=== PATIENT | male | born 1985 | race Caucasian/White ===

== ENCOUNTER 2017-10-19 09:57 | Outpatient (CLI) | payer MEDICARE ==
--- NOTE | 2017-10-22 10:59 | RAD ---
MODEFIED BARIUM SWALLOW: History: Dysphagia, unspecified. R13.10; feeding difficulties, R63.3 FINDINGS: Examination was performed by the speech pathologist. The radiologist was not present. The consistency of contrast was not labelled on the examination. There is penetration with all consis tency contrast. There was aspiration of one of the contrast consistencies. IMPRESSION: Poor oropharyngeal phase with penetration as well as aspiration. Please see speech pathologist report for further details. The contrast was not labelled on the exam. POS: FLORENCIA
== END 2017-10-19 09:58 | disposition home or self-care (01) ==
LOC: EDSTATUS 10:00
PROVIDERS: ATTEND Family Medicine
DX: R13.10 Dysphagia, unspecified (principal); R63.3 Feeding difficulties
CPT/HCPCS: 74230; G8996-GN-CK; G8997-GN-CK; G8998-GN-CK

== ENCOUNTER 2019-02-08 15:54 | Emergency (ER) | payer MEDICARE | END 2019-02-08 17:35 | LOC: ERS 15:54 | DX: G40.909 Epilepsy, unspecified, not intractable, without status epilepticus (principal); S01.512A Laceration without foreign body of oral cavity, initial encounter; X58.XXXA Exposure to other specified factors, initial encounter ==

== ENCOUNTER 2020-03-03 09:18 | Emergency (ER) | payer MEDICARE ==
[2020-03-03] MEDS ORDERED: Ketorolac Tromethamine 30 MG/ML VIAL ONE (09:39)
[2020-03-03] MEDS ORDERED: Morphine 4 MG/ML VIAL ONE (09:39)
[2020-03-03 10:10] LABS: #Lymphocytes 1.1 thou/uL (1.20-3.40); #Monocytes 1.5 thou/uL (0.11-0.59); #Neutrophils 13.8 thou/uL (1.40-6.50); %Lymphocytes 6.8 % (21.0-51.0); %Monocytes 8.9 % (0.0-10.0); %Neutrophils 84.3 % (42.0-75.0); Mean Corpuscular HGB CONC 33.1 g/dL (32.0-36.0); Mean Corpuscular Hemoglobin 30.9 pg (27.0-31.0); Mean Corpuscular Volume 93.2 fL (78.0-98.0); Mean Platelet Volume 7.8 fL (7.4-10.4); Platelet Count 328 thou/uL (130-400); RBC Distribution Width 12.3 % (11.5-14.5); Red Blood Cell (RBC) Count 4.87 mill/uL (4.70-6.10); White Blood Cell (WBC) Count 16.3 thou/uL (4.8-10.8)
[2020-03-03 10:19] LABS: Bilirubin Negative (Negative); Blood, Urine Negative (Negative); Clarity Clear (Clear); Glucose, Urine (Dipstick) Normal (Negative); Ketone, Urine 20 mg/dL (Negative); Leukocyte Negative Leu/uL (Negative); Nitrite Negative (Negative); Protein, Urine (Dipstick) 20 mg/dL (Neg-Trace); Urobilinogen Normal mg/dL (Less than 2); pH, Urine 5.5 (5.0-9.0)
[2020-03-03 10:30] LABS: ALT (SGPT) 34 U/L (8-55); AST (SGOT) 17 U/L (5-34); Albumin 3.7 g/dL (3.5-5.0); Alkaline Phosphatase 84 U/L (40-110); Anion Gap 21 mmol/L (10-20); BUN (Urea Nitrogen) 11 mg/dL (8.9-20.6); Bilirubin, Total 0.6 mg/dL (0.2-1.2); Calc. Creatinine Clearance 0 mL/min (70-130); Calcium 8.1 mg/dL (7.8-10.44); Carbon Dioxide 21 mmol/L (22-29); Chloride 104 mmol/L (98-107); Globulin 2.8 g/dL (2.4-3.5); Glucose 108 mg/dL (70-105); Lipase 10 U/L (8-78); Protein, Total 6.5 g/dL (6.0-8.3); Sodium 142 mmol/L (136-145)
--- NOTE | 2020-03-03 10:36 | CT ---
CT of abdomen and pelvis: 03/03/2020 COMPARISON: None HISTORY: Seizure activity, right-sided pain TECHNIQUE: Axial CT imaging at 5 mm intervals from lung bases through pubic symphysis with IV contras t. Coronal and sagittal reformatted imaging obtained. FINDINGS: Nonspecific mild increased linear density noted in the lung bases, right greater than left. There is elevation of the right hemidiaphragm. The hepatic parenchyma is diffusely hypodense, suggesting hepatic steatosis. The spleen, pancreas, adrenal glands, and kidneys demonstrate no acute findings. A tiny 4-5 mm hypodensity within the midpole of the left kidney is noted posteriorly, too small to characterize. The rectum contains stool and is decompressed, not optimally assessed on this exam. No focal area of bowel inflammatory change is noted. There is no evidence for bowel obstruction. Detailed assessment of the right lower quadrant is slightly limited secondary to motion artifact. No evidence for appendi citis is seen. Vascular structures of the abdomen/pelvis appear patent. No enlarged pelvic, mesenteric, or retroperi toneal lymph nodes are seen. There is a baclofen pump present, reservoir within the subcutaneous soft tissues of the right lower q uadrant. There is significant surrounding soft tissue gas and a mild degree of subcutaneous fat stranding and fluid adjacent to the pump reservoir. The associated catheter tubing enters the spinal canal at the L3-4 level and extends into the thoracic region, incompletely imaged on this exam. There is scoliosis of the thoracolumbar spine, not optimally assessed on this exam. No acute osseous abnormality is seen. There is multilevel lumbar spine degenerative change. IMPRESSION: Soft tissue gas with fat stranding and small volume fluid adjacent to the baclofen pump r eservoir within the subcutaneous soft tissues of the right lower quadrant. Results were discussed with Dr. Moon at 10:30 AM 03/03/2020. Dr. Moon reports that this reservoir was recently surgical ly changed, likely accounting for the findings within the soft tissues. Early change of infection cannot be excluded in the proper clinical setting.
[2020-03-03] MEDS ORDERED: Cefepime 2 GM VIAL ONE (10:52)
[2020-03-03] MEDS ORDERED: Sodium Chloride 0.9% 100 ML ONE (10:52)
--- NOTE | 2020-03-03 10:54 | RAD ---
PORTABLE CHEST: HISTORY: Seizure. COMPARISON: 07/28/2016. FINDINGS/IMPRESSION: Poor inspiration limits the exam. Lungs appear clear as visualized with no evidence of acute interva l change. POS: AGW
[2020-03-03] MEDS ORDERED: Baclofen 10 MG TAB PO SCH (13:00)
[2020-03-03 13:25] LABS: Lactic Acid 1.4 mmol/L (0.5-2.2)
[2020-03-03] MEDS ORDERED: Iopamidol-370 76% 500 ML 1 ML ONE (14:19)
--- NOTE | 2020-03-06 15:19 | EKG ---
Test Reason : Blood Pressure : / mmHG Vent. Rate : 154 BPM Atrial Rate : 154 BPM P-R Int : 122 ms QRS Dur : 076 ms QT Int : 258 ms P-R-T Axes : 063 053 046 degrees QTc Int : 413 ms Sinus tachycardia Otherwise normal ECG Confirmed by CHRISTIAN HAILE ([id number]), book or script editor MADELINE FORTUNE ([id number]) on 03/06/2020 3:19:11 PM Referred By: Confirmed By:CHRISTIAN Dorsey
== END 2020-03-03 14:20 | disposition short-term general hospital (02) ==
LOC: ERS 09:18
DX: T85.615A Breakdown (mechanical) of other nervous system device, implant or graft, initial encounter (principal); M62.838 Other muscle spasm; G40.909 Epilepsy, unspecified, not intractable, without status epilepticus; Z79.899 Other long term (current) drug therapy
CPT/HCPCS: 36415; 51701; 71045; 74177; 80053; 81003; 83605; 83690; 84484; 85025; 87040; 87086; 93005; 96365; 96366; 96367; 96375; J0692; J1885; J2270; J3370; J3490; J7030; Q9967

== ENCOUNTER 2020-03-12 06:21 | Emergency (ER) | payer MEDICARE ==
[2020-03-12] MEDS ORDERED: levETIRAcetam 500 MG/100 ML PREMIX BAG ONE (08:23)
== END 2020-03-12 13:15 ==
LOC: ERS 06:21
DX: G40.409 Other generalized epilepsy and epileptic syndromes, not intractable, without status epilepticus (principal); G81.91 Hemiplegia, unspecified affecting right dominant side; Z79.899 Other long term (current) drug therapy
CPT/HCPCS: 36415; 80164; 80177; 96365; J1953

== ENCOUNTER 2020-08-08 12:58 | Emergency (ER) | payer MEDICARE, MEDICAID ==
[2020-08-08 13:36] LABS: #Basophils 0.1 thou/uL (0.0-0.2); #Eosinphils 0.1 thou/uL (0.0-0.7); #Lymphocytes 2.2 thou/uL (1.20-3.40); #Monocytes 0.8 thou/uL (0.11-0.59); #Neutrophils 9.9 thou/uL (1.40-6.50); %Basophils 0.4 % (0.0-1.0); %Eosinophils 0.5 % (0.0-10.0); %Lymphocytes 16.6 % (21.0-51.0); %Monocytes 6.1 % (0.0-10.0); %Neutrophils 76.3 % (42.0-75.0); Hemoglobin 15.5 g/dL (14.0-18.0); Mean Corpuscular HGB CONC 33.1 g/dL (32.0-36.0); Mean Corpuscular Hemoglobin 30.7 pg (27.0-31.0); Mean Corpuscular Volume 92.6 fL (78.0-98.0); Mean Platelet Volume 7.5 fL (7.4-10.4); Platelet Count 396 thou/uL (130-400); RBC Distribution Width 11.8 % (11.5-14.5); Red Blood Cell (RBC) Count 5.07 mill/uL (4.70-6.10)
[2020-08-08] MEDS ORDERED: levETIRAcetam 500 MG/100 ML PREMIX BAG ONE (13:45)
[2020-08-08] MEDS ORDERED: Boostrix 0.5 ML (Tdap) VIAL ONE (13:45)
[2020-08-08 13:56] LABS: Anion Gap 12 mmol/L (10-20); BUN (Urea Nitrogen) 9 mg/dL (8.9-20.6); Calc. Creatinine Clearance 0 mL/min (70-130); Calcium 9.8 mg/dL (7.8-10.44); Carbon Dioxide 29 mmol/L (22-29); Chloride 101 mmol/L (98-107); Glucose 85 mg/dL (70-105); Potassium 3.9 mmol/L (3.5-5.1); Sodium 138 mmol/L (136-145)
== END 2020-08-08 18:10 | disposition home or self-care (01) ==
LOC: ERS 12:58
DX: G40.909 Epilepsy, unspecified, not intractable, without status epilepticus (principal); S01.01XA Laceration without foreign body of scalp, initial encounter; X58.XXXA Exposure to other specified factors, initial encounter; Z79.899 Other long term (current) drug therapy
CPT/HCPCS: 12001; 70450; 80048; 84146; 85025; 90471; 90715; 93005; 96365; J1953

== ENCOUNTER 2021-05-07 22:09 | Inpatient (IN) | payer OTHER, MEDICARE, MEDICAID ==
[2021-05-07] MEDS ORDERED: Cefepime 2 GM VIAL ONE (22:53)
[2021-05-07 23:02] LABS: #Lymphocytes 1.7 thou/uL (1.20-3.40); #Monocytes 0.9 thou/uL (0.11-0.59); #Neutrophils 11.4 thou/uL (1.40-6.50); %Basophils 0.3 % (0.0-1.0); %Eosinophils 0.3 % (0.0-10.0); %Lymphocytes 12.2 % (21.0-51.0); %Monocytes 6.3 % (0.0-10.0); %Neutrophils 80.9 % (42.0-75.0); Mean Corpuscular Hemoglobin 31.2 pg (27.0-31.0); Mean Corpuscular Volume 91.6 fL (78.0-98.0); Mean Platelet Volume 7.3 fL (7.4-10.4); Platelet Count 358 thou/uL (130-400); RBC Distribution Width 12.3 % (11.5-14.5); Red Blood Cell (RBC) Count 4.81 mill/uL (4.70-6.10); White Blood Cell (WBC) Count 14.1 thou/uL (4.8-10.8)
[2021-05-07 23:13] LABS: PTT 25.6 sec (22.9-36.1); Prothrombin Time 12.8 sec (12.0-14.7)
[2021-05-07 23:25] LABS: ALT (SGPT) 53 U/L (8-55); AST (SGOT) 38 U/L (5-34); Albumin 3.8 g/dL (3.5-5.0); Alkaline Phosphatase 82 U/L (40-110); Anion Gap 15 mmol/L (10-20); BUN (Urea Nitrogen) 7 mg/dL (8.9-20.6); Bilirubin, Total 0.4 mg/dL (0.2-1.2); Calc. Creatinine Clearance 0 mL/min (70-130); Calcium 8.6 mg/dL (7.8-10.44); Carbon Dioxide 20 mmol/L (22-29); Chloride 107 mmol/L (98-107); Globulin 2.9 g/dL (2.4-3.5); Glucose 138 mg/dL (70-105); Potassium 3.6 mmol/L (3.5-5.1); Protein, Total 6.7 g/dL (6.0-8.3); Sodium 138 mmol/L (136-145)
[2021-05-07 23:40] LABS: Bacteria/HPF None Seen HPF (None Seen); Bilirubin Negative (Negative); Blood, Urine Trace (Negative); Clarity Clear (Clear); Glucose, Urine (Dipstick) Normal (Negative); Ketone, Urine 10 mg/dL (Negative); Leukocyte Negative Leu/uL (Negative); Nitrite Negative (Negative); Protein, Urine (Dipstick) 30 mg/dL (Neg-Trace); RBC/HPF 0-3 HPF (0-3); Specific Gravity, Urine 1.024 (1.002-1.036); Squamous Epithelial 0-3 HPF (0-3); Urobilinogen Normal mg/dL (Less than 2); WBC/HPF 0-3 HPF (0-3); pH, Urine 5.5 (5.0-9.0)
[2021-05-08] MEDS ORDERED: Vancomycin 1 GM/200 ML BAG ONE (00:43)
[2021-05-08] MEDS ORDERED: Ondansetron PF 4 MG/2 ML Vial IVP PRN (01:00)
[2021-05-08] MEDS ORDERED: Ondansetron ODT 4 MG TAB SL PRN (01:00)
[2021-05-08] MEDS: Sodium Chloride 0.9% 1,000 ML IV SCH ×2 (01:38→12:38)
[2021-05-08 01:57] LABS: Lactic Acid 2.1 mmol/L (0.5-2.2)
[2021-05-08] MEDS ORDERED: Cefepime 2 GM in Sodium Chloride 0.9% 100 ML IVPB SCH (08:00)
[2021-05-08] MEDS ORDERED: Cefepime 2 GM VIAL ONE (09:17)
[2021-05-08 10:50] VITALS: BMI 19.1
[2021-05-08] MEDS ORDERED: Valproate Sodium 500 MG in Sodium Chloride 0.9% 100 ML IVPB SCH (11:30)
[2021-05-08] MEDS ORDERED: levETIRAcetam in NS 500 MG in Premix Bag 1 BAG IVPB SCH ×2 (11:30→21:00)
[2021-05-08 12:23] LABS: #Eosinphils 0.1 thou/uL (0.0-0.7); #Lymphocytes 2.1 thou/uL (1.20-3.40); #Monocytes 0.6 thou/uL (0.11-0.59); #Neutrophils 8.4 thou/uL (1.40-6.50); %Basophils 0.4 % (0.0-1.0); %Eosinophils 0.6 % (0.0-10.0); %Lymphocytes 18.4 % (21.0-51.0); %Monocytes 5.6 % (0.0-10.0); %Neutrophils 75.1 % (42.0-75.0); Mean Corpuscular HGB CONC 32.8 g/dL (32.0-36.0); Mean Corpuscular Hemoglobin 30.8 pg (27.0-31.0); Mean Corpuscular Volume 93.9 fL (78.0-98.0); Mean Platelet Volume 7.3 fL (7.4-10.4); Platelet Count 332 thou/uL (130-400); RBC Distribution Width 12.4 % (11.5-14.5); Red Blood Cell (RBC) Count 4.54 mill/uL (4.70-6.10); White Blood Cell (WBC) Count 11.1 thou/uL (4.8-10.8)
[2021-05-08] MEDS: levETIRAcetam 500 MG TAB PER TUBE SCH ×2 (12:39→20:53)
[2021-05-08] MEDS: Carbidopa/Levodopa 25-100 mg Tablet PER TUBE SCH ×2 (12:42→15:04)
[2021-05-08 15:29] LABS: SARS-CoV-2 PCR by NAA Not Detected (NotDetected)
[2021-05-08] MEDS: Valproate Sodium 500 MG in Sodium Chloride 0.9% 100 ML IVPB SCH (20:54)
[2021-05-08] MEDS: Valproate Sodium 250 mg/5 ml UD Cup PER TUBE SCH (20:55)
[2021-05-09] MEDS ORDERED: Ondansetron PF 4 MG/2 ML Vial IVP PRN (01:29)
[2021-05-09] MEDS: levETIRAcetam 500 MG TAB PER TUBE SCH ×2 (08:43→22:04)
[2021-05-09] MEDS: Valproate Sodium 250 mg/5 ml UD Cup PER TUBE SCH ×2 (08:43→22:04)
[2021-05-09] MEDS: Carbidopa/Levodopa 25-100 mg Tablet PER TUBE SCH (08:43)
[2021-05-09] MEDS: Cholecalciferol 1,000 UNITS (25 MCG) TAB PER TUBE SCH (08:43)
[2021-05-09] MEDS: Valproate Sodium 500 MG in Sodium Chloride 0.9% 100 ML IVPB SCH ×2 (09:15→22:04)
[2021-05-09 09:45] LABS: #Eosinphils 0.1 thou/uL (0.0-0.7); #Lymphocytes 2.4 thou/uL (1.20-3.40); #Monocytes 0.5 thou/uL (0.11-0.59); #Neutrophils 8.3 thou/uL (1.40-6.50); %Basophils 0.3 % (0.0-1.0); %Eosinophils 1.2 % (0.0-10.0); %Lymphocytes 20.8 % (21.0-51.0); %Monocytes 4.8 % (0.0-10.0); %Neutrophils 72.9 % (42.0-75.0); Hemoglobin 14.9 g/dL (14.0-18.0); Mean Corpuscular HGB CONC 34.5 g/dL (32.0-36.0); Mean Corpuscular Hemoglobin 32.2 pg (27.0-31.0); Mean Corpuscular Volume 93.5 fL (78.0-98.0); Mean Platelet Volume 7.3 fL (7.4-10.4); Platelet Count 327 thou/uL (130-400); RBC Distribution Width 12.2 % (11.5-14.5); Red Blood Cell (RBC) Count 4.64 mill/uL (4.70-6.10); White Blood Cell (WBC) Count 11.3 thou/uL (4.8-10.8)
[2021-05-09] MEDS: Vancomycin 1 GM in Premix Bag 1 BAG IVPB SCH ×2 (10:26→18:35)
[2021-05-09] MEDS ORDERED: Piperacillin/Tazobactam 3.375 GM in Sodium Chloride 0.9% 100 ML IVPB SCH ×2 (12:45→14:00)
[2021-05-09 14:39] LABS: Carbamazepine-Tegretol Less than 1.9 ug/mL (4.0-12.0)
[2021-05-09] MEDS ORDERED: Pregabalin 75 MG CAP PO SCH (18:00)
[2021-05-09 21:24] LABS: Albumin 3.7 g/dL (3.5-5.0)
[2021-05-09 21:26] LABS: Calcium 8.6 mg/dL (7.8-10.44); Chloride 103 mmol/L (98-107); Potassium 4.6 mmol/L (3.5-5.1); Sodium 136 mmol/L (136-145)
[2021-05-09 21:27] LABS: Globulin 3.2 g/dL (2.4-3.5); Glucose 75 mg/dL (70-105); Protein, Total 6.9 g/dL (6.0-8.3)
[2021-05-09 21:28] LABS: Anion Gap 18 mmol/L (10-20); Carbon Dioxide 20 mmol/L (22-29)
[2021-05-09 21:30] LABS: Alkaline Phosphatase 79 U/L (40-110); Calc. Creatinine Clearance 164 mL/min (70-130)
[2021-05-09 21:31] LABS: BUN (Urea Nitrogen) 6 mg/dL (8.9-20.6)
[2021-05-09 21:32] LABS: AST (SGOT) 21 U/L (5-34)
[2021-05-09 21:33] LABS: ALT (SGPT) 16 U/L (8-55)
[2021-05-09] MEDS: Piperacillin/Tazobactam 3.375 GM in Sodium Chloride 0.9% 100 ML IVPB SCH (22:04)
[2021-05-10] MEDS: Vancomycin 1 GM in Premix Bag 1 BAG IVPB SCH ×3 (03:08→18:07)
[2021-05-10 05:32] LABS: #Basophils 0.1 thou/uL (0.0-0.2); #Eosinphils 0.1 thou/uL (0.0-0.7); #Lymphocytes 2.6 thou/uL (1.20-3.40); #Monocytes 0.7 thou/uL (0.11-0.59); #Neutrophils 8.4 thou/uL (1.40-6.50); %Basophils 0.5 % (0.0-1.0); %Eosinophils 0.9 % (0.0-10.0); %Monocytes 6.2 % (0.0-10.0); %Neutrophils 70.4 % (42.0-75.0); Hemoglobin 14.7 g/dL (14.0-18.0); Mean Corpuscular HGB CONC 33.8 g/dL (32.0-36.0); Mean Corpuscular Volume 91.8 fL (78.0-98.0); Mean Platelet Volume 7.2 fL (7.4-10.4); Platelet Count 351 thou/uL (130-400); RBC Distribution Width 12.2 % (11.5-14.5); Red Blood Cell (RBC) Count 4.73 mill/uL (4.70-6.10); White Blood Cell (WBC) Count 11.9 thou/uL (4.8-10.8)
[2021-05-10 06:00] LABS: Anion Gap 15 mmol/L (10-20); BUN (Urea Nitrogen) 7 mg/dL (8.9-20.6); CK (CPK) 333 U/L (30-200); Calc. Creatinine Clearance 133 mL/min (70-130); Calcium 8.9 mg/dL (7.8-10.44); Carbon Dioxide 24 mmol/L (22-29); Chloride 103 mmol/L (98-107); Glucose 95 mg/dL (70-105); Potassium 3.5 mmol/L (3.5-5.1); Sodium 138 mmol/L (136-145)
[2021-05-10] MEDS: Piperacillin/Tazobactam 3.375 GM in Sodium Chloride 0.9% 100 ML IVPB SCH ×3 (06:10→21:00)
[2021-05-10] MEDS: Carbidopa/Levodopa 25-100 mg Tablet PER TUBE SCH (08:48)
[2021-05-10] MEDS: Valproate Sodium 500 MG in Sodium Chloride 0.9% 100 ML IVPB SCH ×3 (08:48→21:00)
[2021-05-10] MEDS: Cholecalciferol 1,000 UNITS (25 MCG) TAB PER TUBE SCH (08:48)
[2021-05-10] MEDS: Valproate Sodium 250 mg/5 ml UD Cup PER TUBE SCH ×2 (09:26→20:59)
[2021-05-10 09:58] LABS: Vancomycin, Trough 16.6 ug/mL
[2021-05-10] MEDS ORDERED: levETIRAcetam 500 mg/5 ml Oral Solution PER TUBE SCH ×2 (11:15→21:00)
[2021-05-10] MEDS: levETIRAcetam 500 MG TAB PER TUBE SCH (15:14)
[2021-05-11] MEDS: Vancomycin 1 GM in Premix Bag 1 BAG IVPB SCH (03:42)
[2021-05-11] MEDS: Piperacillin/Tazobactam 3.375 GM in Sodium Chloride 0.9% 100 ML IVPB SCH (06:37)
[2021-05-11] MEDS ORDERED: levETIRAcetam 500 mg/5 ml Oral Solution PER TUBE SCH (09:00)
[2021-05-11] MEDS: Cholecalciferol 1,000 UNITS (25 MCG) TAB PER TUBE SCH (09:04)
[2021-05-11] MEDS: Carbidopa/Levodopa 25-100 mg Tablet PER TUBE SCH (09:04)
[2021-05-11] MEDS: Valproate Sodium 250 mg/5 ml UD Cup PER TUBE SCH (09:06)
[2021-05-11] MEDS: Valproate Sodium 500 MG in Sodium Chloride 0.9% 100 ML IVPB SCH (09:08)
[2021-05-11 12:01] LABS: #Eosinphils 0.1 thou/uL (0.0-0.7); #Lymphocytes 1.7 thou/uL (1.20-3.40); #Monocytes 1.1 thou/uL (0.11-0.59); #Neutrophils 8.9 thou/uL (1.40-6.50); %Basophils 0.2 % (0.0-1.0); %Eosinophils 0.5 % (0.0-10.0); %Lymphocytes 14.1 % (21.0-51.0); %Monocytes 9.4 % (0.0-10.0); %Neutrophils 75.7 % (42.0-75.0); Hemoglobin 15.4 g/dL (14.0-18.0); Mean Corpuscular HGB CONC 32.9 g/dL (32.0-36.0); Mean Corpuscular Hemoglobin 30.8 pg (27.0-31.0); Mean Corpuscular Volume 93.5 fL (78.0-98.0); Mean Platelet Volume 7.1 fL (7.4-10.4); Platelet Count 369 thou/uL (130-400); RBC Distribution Width 12.5 % (11.5-14.5); Red Blood Cell (RBC) Count 5.02 mill/uL (4.70-6.10); White Blood Cell (WBC) Count 11.7 thou/uL (4.8-10.8)
[2021-05-11 16:04] VITALS: BP 109/67; TEMP 99.6
[2021-05-11] MEDS ORDERED: Divalproex Sodium 250 MG (DR) TAB PER TUBE SCH (21:00)
== END 2021-05-11 18:44 | DRG 100 ==
LOC: ERS 22:09 → ERHOLD 05-08 00:41 → NEURO 05-08 09:57 → OBSVTOIN 05-09 12:30
PROVIDERS: ADMIT Internal Medicine; ATTEND Internal Medicine
DX: G40.901 Epilepsy, unspecified, not intractable, with status epilepticus (principal); G82.50 Quadriplegia, unspecified; A41.9 Sepsis, unspecified organism; E87.2 Acidosis; L03.90 Cellulitis, unspecified; Z20.822 Contact with and (suspected) exposure to COVID-19; Z79.899 Other long term (current) drug therapy; Z93.1 Gastrostomy status; S06.9X0S Unspecified intracranial injury without loss of consciousness, sequela; V49.9XXS Car occupant (driver) (passenger) injured in unspecified traffic accident, sequela
CPT/HCPCS: 36415; 51701; 70450; 71045; 74230; 80048; 80053; 80156; 80164; 80177; 80202; 81003; 81015; 82550; 83605; 85025; 85610; 85730; 87040; 87086; 87149; 93005; 95712; 95819; 95957; 96365; 96366; 96367; 96375; 96376; G0378; J0692; J1953; J2543; J3370; J3490; J7050; U0003; U0005

== ENCOUNTER 2024-01-10 17:41 | Inpatient (IN) | payer MEDICARE, MEDICAID ==
[~2024-01-10 17:41] MED LIST: Iopamidol 370 76% 100 ML VIAL ONE
[2024-01-10] MEDS ORDERED: Dexamethasone 10 MG/ML VIAL ONE (18:21)
[2024-01-10] MEDS ORDERED: Magnesium 2 GM/50 ML BAG (IN WATER) ONE (18:21)
[2024-01-10] MEDS ORDERED: LevoFLOXacin 750 mg/D5W 150 ml Premix Bag ONE (18:22)
[2024-01-10] MEDS ORDERED: Cefepime 2 GM VIAL ONE (18:22)
[2024-01-10 18:25] LABS: #Basophils 0.06 10x3/uL (0.0-0.2); #Eosinophils Less than 0.03 10x3/uL (0.0-0.7); %Basophils 0.5 % (0.0-1.0); %Eosinophils 0.1 % (0.0-10.0); %Lymphocytes 10.4 % (21.0-51.0); %Monocytes 4.5 % (0.0-10.0); %Neutrophils 83.5 % (42.0-75.0); Hematocrit 45.2 % (42.0-52.0); Mean Corpuscular Hemoglobin 30.4 pg (27.0-31.0); Mean Platelet Volume 9.4 fL (7.4-10.4); Platelet Count 437 10x3/uL (130-400); RBC Distribution Width 13.8 % (11.5-14.5); Red Blood Cell (RBC) Count 4.61 mill/uL (4.70-6.10)
[2024-01-10] MEDS ORDERED: Sodium Chloride 0.9% 100 ML ONE (18:26)
[2024-01-10 18:36] LABS: ALT (SGPT) 43 U/L (8-55); AST (SGOT) 37 U/L (5-34); Albumin 2.4 g/dL (3.5-5.0); Alkaline Phosphatase 148 U/L (40-110); Anion Gap 16 mmol/L (10-20); BUN (Urea Nitrogen) 14 mg/dL (8.9-20.6); Bilirubin, Total 0.6 mg/dL (0.2-1.2); Calc. Creatinine Clearance 0 mL/min (70-130); Calcium 9.3 mg/dL (7.8-10.44); Carbon Dioxide 29 mmol/L (22-29); Chloride 102 mmol/L (98-107); Estimated GFR 114; Globulin 4.9 g/dL (2.4-3.5); Glucose 266 mg/dL (70-105); Lipase 69 U/L (8-78); Potassium 4.5 mmol/L (3.5-5.1); Protein, Total 7.3 g/dL (6.0-8.3); Sodium 142 mmol/L (136-145)
[2024-01-10 18:41] LABS: Troponin I Less than 0.010 ng/mL (< 0.028)
[2024-01-10 18:45] LABS: Actual Bicarbonate (HCO3a) 28.9 mEq/L (22-28); Analyzer IN Cardio ER; CO2 Tension 36.4 mmHg (35.0-45.0); Calcium, Ionized (arterial) 1.09 mmol/L (1.12-1.30); Carboxyhemoglobin (COHb) 0.8 gm% (0.0-3.0); Hematocrit-ABG 42 % (42.0-52.0); Hemoglobin (Hb) 14.4 g/dL (14.0-18.0); O2 Tension (PaO2), arterial 88.3 mmHg (80.0-100.0); Potassium - ABG Lab 4.16 mmol/L (3.70-5.30); pH, Arterial 7.518 (7.35-7.45)
[2024-01-10 18:54] LABS: Puncture Site Left Radial artery
[2024-01-10] MEDS ORDERED: Acetaminophen 650 MG Suppository PR PRN ×2 (19:38→19:49)
[2024-01-10] MEDS ORDERED: Benzonatate 100 MG CAP PO PRN (19:38)
[2024-01-10] MEDS ORDERED: Albuterol 200 PUFF (6.7GM INHALER) INH PRN (19:38)
[2024-01-10] MEDS ORDERED: Acetaminophen 325 MG TAB PO PRN ×2 (19:38→19:49)
[2024-01-10] MEDS ORDERED: traMADol HCl 50 MG TAB PO PRN ×2 (19:49)
[2024-01-10 21:21] LABS: Bacteria/HPF None Seen HPF (None Seen); Bilirubin Negative (Negative); Blood, Urine Trace (Negative); CAUTI Indications for Culture Fever or rigors; Clarity Clear (Clear); Glucose, Urine (Dipstick) 200 mg/dL (Negative); Ketone, Urine 10 mg/dL (Negative); Leukocyte Negative Leu/uL (Negative); Nitrite Negative (Negative); Protein, Urine (Dipstick) 50 mg/dL (Neg-Trace); Squamous Epithelial None Seen HPF (0-3); Urobilinogen 6 mg/dL (Less than 2); WBC/HPF 0-3 HPF (0-3); pH, Urine 6.5 (5.0-9.0)
[2024-01-10 21:32] LABS: Urine Culture Reflex No No
[2024-01-10 22:38] LABS: Lactic Acid 2.47 mmol/L (0.5-2.2)
[2024-01-10 23:05] VITALS: BMI 31.5
[2024-01-10] MEDS: levETIRAcetam 500 mg/5 ml Oral Solution PO SCH (23:07)
[2024-01-10] MEDS: Famotidine/PF 20 mg/2ml Vial SLOW IVP SCH (23:07)
[2024-01-10] MEDS: Carbidopa/Levodopa 25-100 mg Tablet PO SCH (23:08)
[2024-01-10] MEDS: Vancomycin (BATCH) 2.5 GM in Premix 1 BAG IVPB SCH (23:08)
[2024-01-10] MEDS: Lactated Ringer's 1,000 ML IV SCH (23:09)
[2024-01-10] MEDS: REMDESIVIR 200 MG in Sodium Chloride 0.9% 250 ML 210 ML IV SCH (23:14)
[2024-01-10] MEDS: Baclofen 10 MG TAB PO SCH (23:29)
[2024-01-11] MEDS: Cefepime 2 GM in Sodium Chloride 0.9% 100 ML IVPB SCH (00:01)
[2024-01-11] MEDS: Lactated Ringer's 500 ML IV SCH (00:02)
[2024-01-11 04:58] LABS: #Basophils 0.03 10x3/uL (0.0-0.2); #Eosinophils Less than 0.03 10x3/uL (0.0-0.7); %Basophils 0.3 % (0.0-1.0); %Lymphocytes 11.4 % (21.0-51.0); %Neutrophils 83.9 % (42.0-75.0); Hematocrit 39.5 % (42.0-52.0); Hemoglobin 12.3 g/dL (14.0-18.0); Mean Corpuscular HGB CONC 31.1 g/dL (32.0-36.0); Mean Corpuscular Hemoglobin 30.5 pg (27.0-31.0); Mean Platelet Volume 9.5 fL (7.4-10.4); Platelet Count 354 10x3/uL (130-400); RBC Distribution Width 13.2 % (11.5-14.5); Red Blood Cell (RBC) Count 4.03 mill/uL (4.70-6.10)
[2024-01-11 05:07] LABS: CRP,High Sensitivity (Inhouse) 7.67 mg/dL (< or = 0.5)
[2024-01-11 05:08] LABS: ALT (SGPT) 36 U/L (8-55); AST (SGOT) 24 U/L (5-34); Albumin 2.1 g/dL (3.5-5.0); Alkaline Phosphatase 119 U/L (40-110); Anion Gap 10 mmol/L (10-20); BUN (Urea Nitrogen) 13 mg/dL (8.9-20.6); Bilirubin, Direct 0.3 mg/dL (0.1-0.3); Bilirubin, Total 0.5 mg/dL (0.2-1.2); Calc. Creatinine Clearance 243 mL/min (70-130); Calcium 8.5 mg/dL (7.8-10.44); Carbon Dioxide 29 mmol/L (22-29); Chloride 105 mmol/L (98-107); Estimated GFR 124; Glucose 252 mg/dL (70-105); Lactic Acid 1.85 mmol/L (0.5-2.2); Potassium 4.2 mmol/L (3.5-5.1); Protein, Total 6.4 g/dL (6.0-8.3); Sodium 140 mmol/L (136-145)
[2024-01-11 05:10] LABS: Vancomycin, Random 19.5 ug/mL (See Comment)
[2024-01-11] MEDS ORDERED: Albuterol 2.5 MG (3 mL) NEB NEB PRN (06:56)
[2024-01-11] MEDS: Vancomycin 1 GM in Sodium Chloride 0.9% 250 ML 250 ML IVPB SCH (07:30)
[2024-01-11] MEDS: Valproic Acid 250 MG CAP PO SCH (07:30)
[2024-01-11] MEDS ORDERED: Vancomycin (BATCH) 1.25 GM in Premix 1 BAG IVPB SCH (08:00)
[2024-01-11] MEDS ORDERED: levETIRAcetam 500 mg/5 ml Oral Solution PO SCH ×2 (09:00→14:00)
[2024-01-11] MEDS: Dexamethasone 10 MG/ML VIAL SLOW IVP SCH (10:41)
[2024-01-11] MEDS: Enoxaparin 40 MG (0.4 mL) SYRINGE SC SCH (10:41)
[2024-01-11] MEDS: levETIRAcetam 500 MG (5 mL) VIAL SLOW IVP SCH ×2 (10:41→21:23)
[2024-01-11] MEDS: Vancomycin (BATCH) 2 GM in Premix 1 BAG IVPB SCH (10:45)
[2024-01-11] MEDS: REMDESIVIR 100 MG in Sodium Chloride 0.9% 250 ML 230 ML IV SCH (12:16)
[2024-01-11] MEDS ORDERED: levETIRAcetam 500 MG (5 mL) VIAL SLOW IVP SCH ×2 (14:00→21:00)
[2024-01-11] MEDS: Valproate Sodium 500 MG in Sodium Chloride 0.9% 100 ML IVPB SCH (16:30)
[2024-01-11] MEDS ORDERED: Valproate Sodium 500 MG in Sodium Chloride 0.9% 100 ML IVPB SCH (18:00)
[2024-01-11 18:14] LABS: Legionella Urinary Ag Negative (Negative); Strep pneumo Urine Ag NEGATIVE (NEGATIVE)
[2024-01-11] MEDS ORDERED: LevoFLOXacin 750 mg/D5W 750 MG in Premix 1 BAG IVPB SCH (20:00)
[2024-01-12 05:32] LABS: ALT (SGPT) 15 U/L (8-55); AST (SGOT) 23 U/L (5-34); Alkaline Phosphatase 249 U/L (40-110); Bilirubin, Direct 0.4 mg/dL (0.1-0.3); Bilirubin, Total 0.9 mg/dL (0.2-1.2)
[2024-01-13 04:24] LABS: ALT (SGPT) 18 U/L (8-55); AST (SGOT) 19 U/L (5-34); Albumin 2.2 g/dL (3.5-5.0); Alkaline Phosphatase 96 U/L (40-110); Bilirubin, Direct 0.2 mg/dL (0.1-0.3); Bilirubin, Total 0.4 mg/dL (0.2-1.2)
[2024-01-14 04:39] VITALS: TEMP 98.7
[2024-01-14 05:53] LABS: ALT (SGPT) 10 U/L (8-55); AST (SGOT) 18 U/L (5-34); Albumin 2.2 g/dL (3.5-5.0); Alkaline Phosphatase 97 U/L (40-110); Bilirubin, Direct 0.1 mg/dL (0.1-0.3); Bilirubin, Total 0.4 mg/dL (0.2-1.2); Protein, Total 5.9 g/dL (6.0-8.3)
[2024-01-14] MEDS: FLU (Fluarix Triv) TS24-25(6MOS UP)/PF 45 MCG/0.5 ML Syringe IM ONE (09:32)
[2024-01-14 16:34] VITALS: BP 111/69
[2024-01-14] MEDS ORDERED: Carbidopa/Levodopa 25-100 mg Tablet PER TUBE SCH (21:00)
== END 2024-01-14 20:04 | DRG 871 ==
LOC: ERS 17:41 → IMCU/EMU 19:27 → T4-B 01-13 17:17
PROVIDERS: ADMIT Family Medicine; ATTEND Family Medicine
PROC: 4A033R1 Measurement of Arterial Saturation, Peripheral, Percutaneous Approach (ICD-10-PCS; principal; 2024-01-10)
PROC: 3E03329 Introduction of Other Anti-infective into Peripheral Vein, Percutaneous Approach (ICD-10-PCS; 2024-01-10)
PROC: XW033E5 Introduction of Remdesivir Anti-infective into Peripheral Vein, Percutaneous Approach, New Technology Group 5 (ICD-10-PCS; 2024-01-10)
PROC: 5A09357 Assistance with Respiratory Ventilation, Less than 24 Consecutive Hours, Continuous Positive Airway Pressure (ICD-10-PCS; 2024-01-10)
DX: A41.89 Other specified sepsis (principal); J96.01 Acute respiratory failure with hypoxia; U07.1 COVID-19; R53.2 Functional quadriplegia; Z87.891 Personal history of nicotine dependence; Z87.820 Personal history of traumatic brain injury; G40.909 Epilepsy, unspecified, not intractable, without status epilepticus; Z98.890 Other specified postprocedural states
CPT/HCPCS: 36415; 36600; 71045; 71275; 80048; 80053; 80076; 80202; 81001; 82805; 83605; 83615; 83690; 83880; 84145; 84484; 85025; 86141; 87040; 87081; 87149; 87449; 87899; 93005; 94660; 96374; 96375; J0248; J0692; J1100; J1650; J1953; J1956; J3370; J3475; J3490; J7050; J7120; Q9967

== ENCOUNTER 2024-01-23 14:29 | Inpatient (IN) | payer MEDICARE, MEDICAID ==
[~2024-01-23 14:29] MED LIST changes: -Iopamidol 370 76% 100 ML VIAL ONE; +Iopamidol-370 76% 500 ML MDV (1 ML CHARGE) ONE
[2024-01-23 15:46] LABS: Hematocrit 47.3 % (42.0-52.0); Hemoglobin 15.7 g/dL (14.0-18.0); Mean Corpuscular HGB CONC 33.2 g/dL (32.0-36.0); Mean Corpuscular Volume 90.3 fL (78.0-98.0); Mean Platelet Volume 9.4 fL (7.4-10.4); Platelet Count 535 10x3/uL (130-400); RBC Distribution Width 13.7 % (11.5-14.5); Red Blood Cell (RBC) Count 5.24 mill/uL (4.70-6.10)
[2024-01-23 16:09] LABS: Band 5 % (5-11); Lymphocytes 5 % (21-51); Monocytes 5 % (0-10); Neutrophil 84 % (42-75); Platelet Adequacy Comment Platelets Increased; Polychromasia SLIGHT = 2-3 cells HPF (0-2); Reactive Lymphocytes 1 % (0-10)
[2024-01-23] MEDS ORDERED: Cefepime 2 GM VIAL ONE (16:16)
[2024-01-23] MEDS ORDERED: Sodium Chloride 0.9% 100 ML ONE (16:16)
[2024-01-23 16:35] LABS: Troponin I Less than 0.010 ng/mL (< 0.028)
[2024-01-23 16:53] LABS: Actual Bicarbonate (HCO3v) 22.1 mEq/L (22-28); Analyzer IN Cardio ER; Base Excess -2.4 mEq/L (-2.0 to +3.0); Calcium, Ionized (venous) 1.08 mmol/L (1.16-1.32); Chloride (VBG) 101 mmol/L (98-106); Hematocrit-VBG 56 % (42.0-52.0); Potassium (VBG) 3.58 mmol/L (3.70-5.30); Sodium 140 mmol/L (133-146); pH (venous) 7.383 (7.32-7.43)
[2024-01-23 17:04] LABS: Bacteria/HPF None Seen HPF (None Seen); Bilirubin Negative (Negative); Blood, Urine Trace (Negative); CAUTI Indications for Culture Dysuria,urgency,freq; Clarity Clear (Clear); Glucose, Urine (Dipstick) 30 mg/dL (Negative); Ketone, Urine Trace mg/dL (Negative); Leukocyte Negative Leu/uL (Negative); Nitrite Negative (Negative); Protein, Urine (Dipstick) 50 mg/dL (Neg-Trace); Squamous Epithelial None Seen HPF (0-3); Urobilinogen Normal mg/dL (Less than 2); WBC/HPF 0-3 HPF (0-3); pH, Urine 6.5 (5.0-9.0)
[2024-01-23 17:25] LABS: Urine Culture Reflex No No
[2024-01-23 17:37] LABS: Specific Gravity, Urine 1.058 (1.002-1.036)
[2024-01-23] MEDS ORDERED: Vancomycin 1 GM in Sodium Chloride 0.9% 500 ML IVPB SCH (19:15)
[2024-01-23 19:31] LABS: Chloride 109 mmol/L (98-107); Potassium 3.6 mmol/L (3.5-5.1); Sodium 138 mmol/L (136-145)
[2024-01-23 19:32] LABS: Albumin 2.3 g/dL (3.5-5.0); Calcium 7.5 mg/dL (7.8-10.44); Glucose 133 mg/dL (70-105)
[2024-01-23 19:33] LABS: Globulin 3.7 g/dL (2.4-3.5)
[2024-01-23 19:34] LABS: Anion Gap 12 mmol/L (10-20); Carbon Dioxide 21 mmol/L (22-29)
[2024-01-23 19:35] LABS: Alkaline Phosphatase 126 U/L (40-110); Bilirubin, Total 0.6 mg/dL (0.2-1.2)
[2024-01-23 19:36] LABS: BUN (Urea Nitrogen) 16 mg/dL (8.9-20.6); Calc. Creatinine Clearance 0 mL/min (70-130); Estimated GFR 132
[2024-01-23 19:38] LABS: ALT (SGPT) 24 U/L (8-55); AST (SGOT) 16 U/L (5-34)
[2024-01-23 21:43] VITALS: BMI 29.9
[2024-01-23] MEDS: Cefepime 2 GM in Sodium Chloride 0.9% 100 ML IVPB SCH (22:03)
[2024-01-23] MEDS: Vancomycin (BATCH) 2.5 GM in Premix 1 BAG IVPB SCH (22:04)
[2024-01-23] MEDS: levETIRAcetam 500 mg/5 ml Oral Solution PER TUBE SCH (22:27)
[2024-01-23] MEDS: Sodium Chloride 0.9% 1,000 ML IV SCH (22:27)
[2024-01-23] MEDS: metroNIDAZOLE 500 MG in Premix 1 BAG IVPB SCH (22:27)
[2024-01-24] MEDS: Vancomycin (BATCH) 1.25 GM in Premix 1 BAG IVPB SCH (00:18)
[2024-01-24] MEDS: Enoxaparin 40 MG (0.4 mL) SYRINGE SC SCH (08:39)
[2024-01-24] MEDS: Carbidopa/Levodopa 25-100 mg Tablet PER TUBE SCH (08:40)
[2024-01-24] MEDS: Floranex 1 GM Packet PER TUBE SCH (08:40)
[2024-01-24] MEDS: Aspirin 325 MG TAB PO SCH (08:40)
[2024-01-24] MEDS: Zinc Sulfate 220 MG CAP PO SCH (08:40)
[2024-01-24] MEDS: Cholecalciferol 1,000 UNITS (25 MCG) TAB PER TUBE SCH (08:40)
[2024-01-24] MEDS: Valproic Acid 250 mg/5 ml UD Cup PER TUBE SCH (10:21)
[2024-01-24 11:36] LABS: Vancomycin, Random 19.2 ug/mL (See Comment)
[2024-01-24] MEDS: Polyethylene Glycol 3350 17 GM Packet FS SCH (20:15)
[2024-01-24] MEDS: Fleet Saline Enema 133 ML BOT PR SCH (20:15)
[2024-01-24] MEDS: Lactulose 20 GM (30 mL) UDCUP FS SCH (20:15)
[2024-01-25 06:48] LABS: #Basophils Less than 0.03 10x3/uL (0.0-0.2); %Basophils 0.2 % (0.0-1.0); %Eosinophils 1.5 % (0.0-10.0); %Lymphocytes 19.7 % (21.0-51.0); %Neutrophils 70.4 % (42.0-75.0); Hematocrit 38.2 % (42.0-52.0); Hemoglobin 12.3 g/dL (14.0-18.0); Mean Corpuscular HGB CONC 32.2 g/dL (32.0-36.0); Mean Corpuscular Hemoglobin 29.8 pg (27.0-31.0); Mean Corpuscular Volume 92.5 fL (78.0-98.0); Mean Platelet Volume 9.4 fL (7.4-10.4); Platelet Count 328 10x3/uL (130-400); RBC Distribution Width 13.5 % (11.5-14.5); Red Blood Cell (RBC) Count 4.13 mill/uL (4.70-6.10)
[2024-01-25 07:04] LABS: Anion Gap 11 mmol/L (10-20); BUN (Urea Nitrogen) 10 mg/dL (8.9-20.6); Calc. Creatinine Clearance 258 mL/min (70-130); Calcium 7.8 mg/dL (7.8-10.44); Carbon Dioxide 25 mmol/L (22-29); Chloride 106 mmol/L (98-107); Estimated GFR 129; Glucose 107 mg/dL (70-105); Potassium 3.3 mmol/L (3.5-5.1); Sodium 139 mmol/L (136-145)
[2024-01-25] MEDS: Polyethylene Glycol 3350 17 GM Packet FS SCH (08:41)
[2024-01-25] MEDS: VANCOMYCIN 1.25 GM/250 ML BAG 1.25 GM in Premix 1 BAG IVPB SCH (17:49)
[2024-01-26 06:15] LABS: Adenovirus F 40-41 Not Detected (Not Detected); Astrovirus Not Detected (Not Detected); C. difficile toxin A+B Not Detected (Not Detected); Campylobacter by PCR Not Detected (Not Detected); Cryptosporidium Not Detected (Not Detected); Cyclospora cayetanensis Not Detected (Not Detected); Entamoeba histolytica Not Detected (Not Detected); Enteroaggregative E. coli Not Detected (Not Detected); Enteropathogenic E. coli Not Detected (Not Detected); Enterotoxigenic E. coli Not Detected (Not Detected); Giardia lamblia Not Detected (Not Detected); Norovirus GI-GII Not Detected (Not Detected); Plesiomonas shigelloides Not Detected (Not Detected); Rotavirus A Not Detected (Not Detected); Salmonella Not Detected (Not Detected); Sapovirus Not Detected (Not Detected); Shiga-toxin-producing E coli Not Detected (Not Detected); Shigella/Enteroinvasive E coli Not Detected (Not Detected); Vibrio Not Detected (Not Detected); Vibrio cholerae Not Detected (Not Detected); Yersinia enterocolitica Not Detected (Not Detected)
[2024-01-26 07:37] LABS: Anion Gap 12 mmol/L (10-20); BUN (Urea Nitrogen) 5 mg/dL (8.9-20.6); Calc. Creatinine Clearance 284 mL/min (70-130); Calcium 8.1 mg/dL (7.8-10.44); Carbon Dioxide 26 mmol/L (22-29); Chloride 101 mmol/L (98-107); Estimated GFR 133; Glucose 89 mg/dL (70-105); Potassium 3.4 mmol/L (3.5-5.1); Sodium 136 mmol/L (136-145)
[2024-01-26 08:01] LABS: Hematocrit 39.2 % (42.0-52.0); Mean Corpuscular HGB CONC 33.2 g/dL (32.0-36.0); Mean Corpuscular Hemoglobin 30.2 pg (27.0-31.0); Mean Corpuscular Volume 91.2 fL (78.0-98.0); Mean Platelet Volume 10.2 fL (7.4-10.4); Platelet Count 327 10x3/uL (130-400); RBC Distribution Width 13.1 % (11.5-14.5)
[2024-01-26 08:06] LABS: Vancomycin, Random 17.2 ug/mL (See Comment)
[2024-01-26 08:45] LABS: Band 1 % (5-11); Eosinophils 1 % (0-10); Lymphocytes 16 % (21-51); Monocytes 3 % (0-10); Neutrophil 80 % (42-75); Platelet Adequacy Comment Platelets Normal; Poikilocytosis SLIGHT = 6-15 cells HPF (0-5); Polychromasia SLIGHT = 2-3 cells HPF (0-2); Rouleaux Formation SLIGHT = 1-5 cells HPF (None Seen)
[2024-01-26 08:55] LABS: #Basophils 0.03 10x3/uL (0.0-0.2); %Basophils 0.4 % (0.0-1.0); %Eosinophils 1.4 % (0.0-10.0); %Lymphocytes 26.3 % (21.0-51.0); %Monocytes 5.8 % (0.0-10.0); %Neutrophils 65.7 % (42.0-75.0)
[2024-01-26] MEDS: Potassium Chloride 20 MEQ TAB PO SCH (13:15)
[2024-01-26] MEDS: Amoxicillin/Potassium Clav 600 mg/5 ml Oral Suspension PO SCH (20:31)
[2024-01-27 14:17] LABS: #Basophils 0.04 10x3/uL (0.0-0.2); %Basophils 0.5 % (0.0-1.0); %Eosinophils 0.6 % (0.0-10.0); %Lymphocytes 28.5 % (21.0-51.0); %Monocytes 7.6 % (0.0-10.0); %Neutrophils 62.6 % (42.0-75.0); Hematocrit 42.5 % (42.0-52.0); Hemoglobin 13.9 g/dL (14.0-18.0); Mean Corpuscular HGB CONC 32.7 g/dL (32.0-36.0); Mean Corpuscular Hemoglobin 30.3 pg (27.0-31.0); Mean Corpuscular Volume 92.6 fL (78.0-98.0); Mean Platelet Volume 9.3 fL (7.4-10.4); Platelet Count 382 10x3/uL (130-400); RBC Distribution Width 12.9 % (11.5-14.5); Red Blood Cell (RBC) Count 4.59 mill/uL (4.70-6.10)
[2024-01-27] MEDS: Furosemide 40 MG TAB PO SCH (14:27)
[2024-01-27 14:53] LABS: Anion Gap 14 mmol/L (10-20); BUN (Urea Nitrogen) 7 mg/dL (8.9-20.6); Calc. Creatinine Clearance 253 mL/min (70-130); Carbon Dioxide 29 mmol/L (22-29); Chloride 99 mmol/L (98-107); Estimated GFR 128; Glucose 105 mg/dL (70-105); Potassium 3.6 mmol/L (3.5-5.1); Sodium 138 mmol/L (136-145)
[2024-01-28 09:54] LABS: #Basophils 0.03 10x3/uL (0.0-0.2); %Basophils 0.3 % (0.0-1.0); %Eosinophils 0.9 % (0.0-10.0); %Lymphocytes 25.4 % (21.0-51.0); %Monocytes 6.2 % (0.0-10.0); %Neutrophils 66.9 % (42.0-75.0); Hematocrit 42.2 % (42.0-52.0); Hemoglobin 13.9 g/dL (14.0-18.0); Mean Corpuscular HGB CONC 32.9 g/dL (32.0-36.0); Mean Corpuscular Hemoglobin 29.5 pg (27.0-31.0); Mean Corpuscular Volume 89.6 fL (78.0-98.0); Mean Platelet Volume 9.2 fL (7.4-10.4); Platelet Count 378 10x3/uL (130-400); Red Blood Cell (RBC) Count 4.71 mill/uL (4.70-6.10)
[2024-01-28 10:38] LABS: Anion Gap 14 mmol/L (10-20); BUN (Urea Nitrogen) 9 mg/dL (8.9-20.6); Calc. Creatinine Clearance 253 mL/min (70-130); Carbon Dioxide 29 mmol/L (22-29); Chloride 97 mmol/L (98-107); Estimated GFR 128; Glucose 116 mg/dL (70-105); Potassium 3.3 mmol/L (3.5-5.1); Sodium 137 mmol/L (136-145)
[2024-01-29 06:08] LABS: #Basophils 0.03 10x3/uL (0.0-0.2); %Basophils 0.3 % (0.0-1.0); %Eosinophils 0.6 % (0.0-10.0); %Lymphocytes 30.9 % (21.0-51.0); %Monocytes 5.8 % (0.0-10.0); %Neutrophils 62.1 % (42.0-75.0); Hematocrit 43.2 % (42.0-52.0); Hemoglobin 14.7 g/dL (14.0-18.0); Mean Corpuscular Hemoglobin 30.1 pg (27.0-31.0); Mean Corpuscular Volume 88.5 fL (78.0-98.0); Mean Platelet Volume 9.3 fL (7.4-10.4); Platelet Count 419 10x3/uL (130-400); RBC Distribution Width 13.1 % (11.5-14.5); Red Blood Cell (RBC) Count 4.88 mill/uL (4.70-6.10)
[2024-01-29 06:20] LABS: Anion Gap 17 mmol/L (10-20); BUN (Urea Nitrogen) 12 mg/dL (8.9-20.6); Calc. Creatinine Clearance 225 mL/min (70-130); Calcium 8.9 mg/dL (7.8-10.44); Carbon Dioxide 28 mmol/L (22-29); Chloride 96 mmol/L (98-107); Estimated GFR 124; Glucose 100 mg/dL (70-105); Potassium 3.9 mmol/L (3.5-5.1); Sodium 137 mmol/L (136-145)
[2024-01-29 16:26] VITALS: BP 119/77; TEMP 98.6
== END 2024-01-29 18:10 | DRG 871 ==
LOC: ERS 14:29 → T4-A 19:14
PROVIDERS: ADMIT Internal Medicine; ATTEND Internal Medicine
DX: A41.9 Sepsis, unspecified organism (principal); G82.50 Quadriplegia, unspecified; J69.0 Pneumonitis due to inhalation of food and vomit; J96.00 Acute respiratory failure, unspecified whether with hypoxia or hypercapnia; E87.20 Acidosis, unspecified; G40.909 Epilepsy, unspecified, not intractable, without status epilepticus; R65.20 Severe sepsis without septic shock; L89.151 Pressure ulcer of sacral region, stage 1; Z87.820 Personal history of traumatic brain injury; Z88.8 Allergy status to other drugs, medicaments and biological substances; Z87.891 Personal history of nicotine dependence
CPT/HCPCS: 36415; 36416; 71045; 71046; 74177; 80048; 80053; 80202; 81001; 82565; 82805; 83605; 84145; 84484; 85025; 87040; 87081; 87086; 87324; 87400; 87449; 87507; 93005; 96365; 96375; J0692; J1650; J3370; J7030; Q9967

== ENCOUNTER 2025-01-05 18:30 | Inpatient (IN) | payer MEDICARE, MEDICAID ==
[2025-01-05] MEDS ORDERED: levETIRAcetam 500 MG (5 mL) VIAL ONE (18:37)
[2025-01-05 18:52] LABS: Actual Bicarbonate (HCO3a) 21.5 mEq/L (22-28); Analyzer IN Cardio ER; Base Excess (BEa) -3.1 mEq/L (-2.0 to +3.0); CO2 Tension 37.4 mmHg (35.0-45.0); Calcium, Ionized (arterial) 1.19 mmol/L (1.12-1.30); Hematocrit-ABG 45 % (42.0-52.0); Hemoglobin (Hb) 15.2 g/dL (14.0-18.0); O2 Tension (PaO2), arterial 157.5 mmHg (80.0-100.0); Potassium - ABG Lab 4.12 mmol/L (3.70-5.30); pH, Arterial 7.378 (7.35-7.45)
[2025-01-05 18:54] LABS: ALV-art Gradient 508.750 mmHg (0-20); Puncture Site Left Radial artery
[2025-01-05 19:20] LABS: ALT (SGPT) 44 U/L (Less than 45); AST (SGOT) 47 U/L (11-34); Albumin 3.5 g/dL (3.1-4.5); Alkaline Phosphatase 229 U/L (40-110); Anion Gap 21 mmol/L (10-20); BUN (Urea Nitrogen) 12 mg/dL (8.9-20.6); Bilirubin, Total 0.6 mg/dL (0.3-1.2); Calc. Creatinine Clearance 0 mL/min (70-130); Calcium 8.7 mg/dL (7.8-10.44); Carbon Dioxide 18 mmol/L (22-29); Chloride 101 mmol/L (98-107); Globulin 3.9 g/dL (2.4-3.5); Glucose 339 mg/dL (70-105); Lipase 45 U/L (8-78); Magnesium 1.7 mg/dL (1.6-2.6); Potassium 4.5 mmol/L (3.5-5.1); Sodium 135 mmol/L (136-145)
[2025-01-05 19:43] LABS: #Basophils 0.03 10x3/uL (0.0-0.2); #Eosinophils Less than 0.03 10x3/uL (0.0-0.7); #Monocytes 1.18 10x3/uL (0.11-0.59); #Neutrophils 17.23 10x3/uL (1.40-6.50); %Basophils 0.2 % (0.0-1.0); %Eosinophils 0.0 % (0.0-10.0); %Lymphocytes 4.0 % (21.0-51.0); %Monocytes 6.1 % (0.0-10.0); %Neutrophils 89.0 % (42.0-75.0); Hematocrit 41.0 % (42.0-52.0); Hemoglobin 13.8 g/dL (14.0-18.0); Mean Corpuscular Hemoglobin 29.4 pg (27.0-31.0); Mean Corpuscular Volume 87.2 fL (78.0-98.0); Platelet Count 367 10x3/uL (130-400); Red Blood Cell (RBC) Count 4.70 mill/uL (4.70-6.10); White Blood Cell (WBC) Count 19.34 10x3/uL (4.8-10.8)
[2025-01-05] MEDS ORDERED: Cefepime 2 GM VIAL ONE (19:59)
[2025-01-05 20:15] LABS: INR-International Normal Ratio 1.1; Prothrombin Time 14.0 sec (12.0-14.7)
[2025-01-05 20:16] LABS: PTT 24.4 sec (22.9-36.1)
[2025-01-05] MEDS ORDERED: Ketorolac Tromethamine 30 MG (1 mL) VIAL ONE (20:56)
[2025-01-05] MEDS ORDERED: Melatonin 3 MG TAB PER TUBE PRN (23:24)
[2025-01-05] MEDS ORDERED: Acetaminophen 325 MG TAB PER TUBE PRN (23:24)
[2025-01-05] MEDS ORDERED: Senokot S 8.6-50 MG TAB PER TUBE PRN (23:24)
[2025-01-05] MEDS ORDERED: Bisacodyl 10 MG SUPP PR PRN (23:24)
[2025-01-05] MEDS ORDERED: Albuterol 200 PUFF (6.7GM INHALER) INH PRN (23:24)
[2025-01-05 23:28] LABS: CAUTI Indications for Culture Pelvic or flank pain; Glucose, Urine (Dipstick) Normal (Negative); Leukocyte 75 Leu/uL (Negative); Protein, Urine (Dipstick) Negative (Neg-Trace); RBC/HPF 0-3 HPF (0-3); Specific Gravity, Urine 1.026 (1.002-1.036)
[2025-01-05 23:29] LABS: Bacteria/HPF 1+ HPF (None Seen)
[2025-01-05 23:30] LABS: Urine Culture Reflex Yes Yes
[2025-01-05] MEDS ORDERED: Electrolyte Replacement Protocol 1 EACH FS SCH (23:30)
[2025-01-06] MEDS ORDERED: Glucagon 1 MG/ML KIT IM PRN (00:30)
[2025-01-06] MEDS ORDERED: Dextrose 50% Abboject 50 ML SYRINGE SLOW IVP PRN (00:30)
[2025-01-06] MEDS: REMDESIVIR 200 MG in Sodium Chloride 0.9% 250 ML 210 ML IV SCH (03:41)
[2025-01-06] MEDS: Vancomycin (BATCH) 2.5 GM in Premix 1 BAG IVPB SCH ×2 (03:42→17:02)
[2025-01-06 04:01] LABS: #Basophils 0.03 10x3/uL (0.0-0.2); #Eosinophils Less than 0.03 10x3/uL (0.0-0.7); #Monocytes 0.87 10x3/uL (0.11-0.59); #Neutrophils 9.87 10x3/uL (1.40-6.50); %Basophils 0.2 % (0.0-1.0); %Eosinophils 0.0 % (0.0-10.0); %Lymphocytes 10.3 % (21.0-51.0); %Monocytes 7.2 % (0.0-10.0); %Neutrophils 81.8 % (42.0-75.0); Hematocrit 41.5 % (42.0-52.0); Hemoglobin 12.9 g/dL (14.0-18.0); Mean Corpuscular Hemoglobin 28.7 pg (27.0-31.0); Mean Corpuscular Volume 92.2 fL (78.0-98.0); Platelet Count 294 10x3/uL (130-400); Red Blood Cell (RBC) Count 4.50 mill/uL (4.70-6.10); White Blood Cell (WBC) Count 12.07 10x3/uL (4.8-10.8)
[2025-01-06 04:58] LABS: CRP, High Sensitivity at Bryan 2.48 mg/dL (< or = 0.5)
[2025-01-06 04:59] LABS: ALT (SGPT) 39 U/L (Less than 45); AST (SGOT) 33 U/L (11-34); Albumin 3.0 g/dL (3.1-4.5); Alkaline Phosphatase 175 U/L (40-110); Anion Gap 17 mmol/L (10-20); BUN (Urea Nitrogen) 10 mg/dL (8.9-20.6); Bilirubin, Direct 0.2 mg/dL (0.1-0.3); Bilirubin, Total 0.6 mg/dL (0.3-1.2); Calc. Creatinine Clearance 0 mL/min (70-130); Calcium 7.8 mg/dL (7.8-10.44); Carbon Dioxide 17 mmol/L (22-29); Chloride 109 mmol/L (98-107); Globulin 2.9 g/dL (2.4-3.5); Glucose 149 mg/dL (70-105); Potassium 4.2 mmol/L (3.5-5.1); Sodium 139 mmol/L (136-145)
[2025-01-06] MEDS ORDERED: Non-Formulary Item 1 EACH (Loperamide Hcl [Loperamide] 2 MG Tablet) PER TUBE PRN (07:38)
[2025-01-06] MEDS ORDERED: Cholecalciferol (Vitamin D3) 400 UNITS TAB PER TUBE SCH (09:00)
[2025-01-06] MEDS ORDERED: Non-Formulary Item 1 EACH (Cholecalciferol (Vitamin D3) [Vitamin D3] 5,000 UNITS Capsule) PER TUBE SCH (09:00)
[2025-01-06] MEDS ORDERED: Non-Formulary Item 1 EACH (Polyethylene Glycol 3350 [Miralax] 119 GM Bottle) PO SCH (09:00)
[2025-01-06] MEDS ORDERED: LACTOBACILLUS ACIDOPHILUS PER TUBE SCH (09:00)
[2025-01-06] MEDS ORDERED: Melatonin 3 MG TAB PO PRN (10:50)
[2025-01-06] MEDS ORDERED: Senokot S 8.6-50 MG TAB PO PRN (10:51)
[2025-01-06] MEDS: Valproic Acid 250 mg/5 ml UD Cup PER TUBE SCH (11:28)
[2025-01-06] MEDS: levETIRAcetam 500 mg/5 ml Oral Solution PER TUBE SCH (11:29)
[2025-01-06] MEDS: Famotidine 20 MG TAB PER TUBE SCH (11:29)
[2025-01-06] MEDS: Cholecalciferol 1,000 UNITS (25 MCG) TAB PER TUBE SCH (11:29)
[2025-01-06] MEDS: Dexamethasone 4 MG TAB PER TUBE SCH (11:30)
[2025-01-06] MEDS: Insulin Glargine 30 UNITS/0.3 ML VIAL SC SCH (11:46)
[2025-01-06] MEDS: Enoxaparin 40 MG (0.4 mL) SYRINGE SC SCH (11:47)
[2025-01-06] MEDS: Magnesium 2 GM/50 ML(in water) 2 GM in Premix 1 BAG IVPB SCH (11:48)
[2025-01-06] MEDS: Acetaminophen 325 MG TAB PO PRN (11:49)
[2025-01-06 14:53] VITALS: BMI 27.3
[2025-01-06] MEDS: cefTRIAXone (ROCEPHIN) 1 GM VIAL ONE (15:23)
[2025-01-06] MEDS: cefTRIAXone\\ROCEPHIN 1 GM in Sodium Chloride 0.9% 100 ML IVPB SCH (15:24)
[2025-01-06] MEDS: REMDESIVIR 100 MG in Sodium Chloride 0.9% 250 ML 230 ML IV SCH (19:58)
[2025-01-06] MEDS: levETIRAcetam 500 mg/5 ml Oral Solution PO SCH (19:58)
[2025-01-06] MEDS: Famotidine 20 MG TAB PO SCH (19:59)
[2025-01-06] MEDS: Valproic Acid 250 mg/5 ml UD Cup PO SCH (21:34)
[2025-01-07 03:50] LABS: #Basophils 0.04 10x3/uL (0.0-0.2); #Eosinophils 0.04 10x3/uL (0.0-0.7); #Monocytes 0.91 10x3/uL (0.11-0.59); #Neutrophils 5.40 10x3/uL (1.40-6.50); %Basophils 0.5 % (0.0-1.0); %Eosinophils 0.5 % (0.0-10.0); %Lymphocytes 23.1 % (21.0-51.0); %Monocytes 10.9 % (0.0-10.0); %Neutrophils 64.4 % (42.0-75.0); Hematocrit 38.5 % (42.0-52.0); Hemoglobin 11.8 g/dL (14.0-18.0); Mean Corpuscular Hemoglobin 28.6 pg (27.0-31.0); Mean Corpuscular Volume 93.4 fL (78.0-98.0); Platelet Count 256 10x3/uL (130-400); Red Blood Cell (RBC) Count 4.12 mill/uL (4.70-6.10); White Blood Cell (WBC) Count 8.37 10x3/uL (4.8-10.8)
[2025-01-07 04:15] LABS: Vancomycin, Random 27.3 ug/mL (See Comment)
[2025-01-07 04:17] LABS: CRP, High Sensitivity at Bryan 5.05 mg/dL (< or = 0.5)
[2025-01-07 04:18] LABS: ALT (SGPT) 21 U/L (Less than 45); AST (SGOT) 40 U/L (11-34); Albumin 2.8 g/dL (3.1-4.5); Alkaline Phosphatase 156 U/L (40-110); Anion Gap 17 mmol/L (10-20); BUN (Urea Nitrogen) 6 mg/dL (8.9-20.6); Bilirubin, Direct 0.3 mg/dL (0.1-0.3); Bilirubin, Total 0.6 mg/dL (0.3-1.2); Calc. Creatinine Clearance 312 mL/min (70-130); Calcium 8.1 mg/dL (7.8-10.44); Carbon Dioxide 22 mmol/L (22-29); Chloride 103 mmol/L (98-107); Glucose 103 mg/dL (70-105); Potassium 3.7 mmol/L (3.5-5.1); Sodium 138 mmol/L (136-145)
[2025-01-07] MEDS: Dexamethasone 4 MG TAB PO SCH (10:51)
[2025-01-07] MEDS: Cholecalciferol 1,000 UNITS (25 MCG) TAB PO SCH (10:55)
[2025-01-08 04:46] LABS: #Basophils Less than 0.03 10x3/uL (0.0-0.2); #Eosinophils Less than 0.03 10x3/uL (0.0-0.7); #Monocytes 0.55 10x3/uL (0.11-0.59); #Neutrophils 5.44 10x3/uL (1.40-6.50); %Basophils 0.3 % (0.0-1.0); %Eosinophils 0.0 % (0.0-10.0); %Lymphocytes 16.9 % (21.0-51.0); %Monocytes 7.6 % (0.0-10.0); %Neutrophils 74.9 % (42.0-75.0); Hematocrit 41.3 % (42.0-52.0); Hemoglobin 12.8 g/dL (14.0-18.0); Mean Corpuscular Hemoglobin 28.4 pg (27.0-31.0); Mean Corpuscular Volume 91.8 fL (78.0-98.0); Platelet Count 272 10x3/uL (130-400); Red Blood Cell (RBC) Count 4.50 mill/uL (4.70-6.10); White Blood Cell (WBC) Count 7.26 10x3/uL (4.8-10.8)
[2025-01-08 05:06] LABS: ALT (SGPT) 13 U/L (Less than 45); AST (SGOT) 37 U/L (11-34); Albumin 2.8 g/dL (3.1-4.5); Alkaline Phosphatase 167 U/L (40-110); Anion Gap 14 mmol/L (10-20); BUN (Urea Nitrogen) 10 mg/dL (8.9-20.6); Bilirubin, Direct 0.2 mg/dL (0.1-0.3); Bilirubin, Total 0.4 mg/dL (0.3-1.2); Calc. Creatinine Clearance 312 mL/min (70-130); Calcium 8.6 mg/dL (7.8-10.44); Carbon Dioxide 27 mmol/L (22-29); Chloride 106 mmol/L (98-107); Glucose 144 mg/dL (70-105); Potassium 4.6 mmol/L (3.5-5.1); Sodium 142 mmol/L (136-145)
[2025-01-09 03:52] LABS: #Basophils Less than 0.03 10x3/uL (0.0-0.2); #Eosinophils Less than 0.03 10x3/uL (0.0-0.7); #Monocytes 0.34 10x3/uL (0.11-0.59); #Neutrophils 7.88 10x3/uL (1.40-6.50); %Basophils 0.2 % (0.0-1.0); %Eosinophils 0.0 % (0.0-10.0); %Lymphocytes 15.9 % (21.0-51.0); %Monocytes 3.5 % (0.0-10.0); %Neutrophils 80.0 % (42.0-75.0); Hematocrit 41.3 % (42.0-52.0); Hemoglobin 12.5 g/dL (14.0-18.0); Mean Corpuscular Hemoglobin 28.4 pg (27.0-31.0); Mean Corpuscular Volume 93.9 fL (78.0-98.0); Platelet Count 318 10x3/uL (130-400); Red Blood Cell (RBC) Count 4.40 mill/uL (4.70-6.10); White Blood Cell (WBC) Count 9.85 10x3/uL (4.8-10.8)
[2025-01-09 04:05] LABS: Vancomycin, Random 27.8 ug/mL (See Comment)
[2025-01-09 04:09] LABS: ALT (SGPT) 17 U/L (Less than 45); AST (SGOT) 30 U/L (11-34); Albumin 2.8 g/dL (3.1-4.5); Alkaline Phosphatase 163 U/L (40-110); Anion Gap 14 mmol/L (10-20); BUN (Urea Nitrogen) 16 mg/dL (8.9-20.6); Bilirubin, Direct 0.1 mg/dL (0.1-0.3); Bilirubin, Total 0.3 mg/dL (0.3-1.2); Calc. Creatinine Clearance 286 mL/min (70-130); Calcium 8.4 mg/dL (7.8-10.44); Carbon Dioxide 26 mmol/L (22-29); Chloride 103 mmol/L (98-107); Glucose 143 mg/dL (70-105); Potassium 4.2 mmol/L (3.5-5.1); Sodium 139 mmol/L (136-145)
[2025-01-09] MEDS: Vancomycin 1.25 GM / NS 250 ML VIAL-2-BAG IVPB SCH (16:22)
[2025-01-10 04:22] LABS: #Basophils Less than 0.03 10x3/uL (0.0-0.2); #Eosinophils Less than 0.03 10x3/uL (0.0-0.7); #Monocytes 0.41 10x3/uL (0.11-0.59); #Neutrophils 6.82 10x3/uL (1.40-6.50); %Basophils 0.2 % (0.0-1.0); %Eosinophils 0.0 % (0.0-10.0); %Lymphocytes 26.4 % (21.0-51.0); %Monocytes 4.1 % (0.0-10.0); %Neutrophils 68.8 % (42.0-75.0); Hematocrit 38.0 % (42.0-52.0); Hemoglobin 12.4 g/dL (14.0-18.0); Mean Corpuscular Hemoglobin 29.2 pg (27.0-31.0); Mean Corpuscular Volume 89.6 fL (78.0-98.0); Platelet Count 288 10x3/uL (130-400); Red Blood Cell (RBC) Count 4.24 mill/uL (4.70-6.10); White Blood Cell (WBC) Count 9.92 10x3/uL (4.8-10.8)
[2025-01-10 04:52] LABS: Anion Gap 11 mmol/L (10-20); BUN (Urea Nitrogen) 13 mg/dL (8.9-20.6); Calc. Creatinine Clearance 286 mL/min (70-130); Calcium 8.3 mg/dL (7.8-10.44); Carbon Dioxide 32 mmol/L (22-29); Chloride 103 mmol/L (98-107); Glucose 158 mg/dL (70-105); Potassium 4.0 mmol/L (3.5-5.1); Sodium 142 mmol/L (136-145)
[2025-01-12 04:48] LABS: Vancomycin, Random 22.8 ug/mL (See Comment)
[2025-01-12 06:22] LABS: Calc. Creatinine Clearance 292.0 mL/min (70-130)
[2025-01-12] MEDS: FLU (Fluarix Triv) 25-26 (6MOS UP)/PF 45 MCG/0.5 ML Syringe IM ONE (13:21)
[2025-01-12] MEDS: PNEUMOC 20-VAL CONJ-DIP CRM/PF 0.5 ML SYRINGE IM ONE (13:21)
[2025-01-12 16:22] VITALS: BP 104/66; TEMP 97.7
== END 2025-01-12 17:18 | DRG 871 ==
LOC: ERS 18:30 → ERHOLD 22:02 → PCU 01-06 02:03
PROVIDERS: ADMIT Internal Medicine; ATTEND Internal Medicine
PROC: 4A033R1 Measurement of Arterial Saturation, Peripheral, Percutaneous Approach (ICD-10-PCS; principal; 2025-01-05)
PROC: 3E03329 Introduction of Other Anti-infective into Peripheral Vein, Percutaneous Approach (ICD-10-PCS; 2025-01-05)
PROC: XW033E5 Introduction of Remdesivir Anti-infective into Peripheral Vein, Percutaneous Approach, New Technology Group 5 (ICD-10-PCS; 2025-01-05)
PROC: 3E0234Z Introduction of Serum, Toxoid and Vaccine into Muscle, Percutaneous Approach (ICD-10-PCS; 2025-01-05)
PROC: XX20X89 Monitoring of Brain Electrical Activity, Computer-aided Detection and Notification, New Technology Group 9 (ICD-10-PCS; 2025-01-05)
DX: A41.89 Other specified sepsis (principal); U07.1 COVID-19; I69.951 Hemiplegia and hemiparesis following unspecified cerebrovascular disease affecting right dominant side; N39.0 Urinary tract infection, site not specified; A41.51 Sepsis due to Escherichia coli [E. coli]; E55.9 Vitamin D deficiency, unspecified; E78.1 Pure hyperglyceridemia; G40.909 Epilepsy, unspecified, not intractable, without status epilepticus; K59.00 Constipation, unspecified; R13.12 Dysphagia, oropharyngeal phase; F41.9 Anxiety disorder, unspecified; Z98.890 Other specified postprocedural states; Z88.8 Allergy status to other drugs, medicaments and biological substances; Z79.82 Long term (current) use of aspirin; Z79.899 Other long term (current) drug therapy; Z79.84 Long term (current) use of oral hypoglycemic drugs; Z79.4 Long term (current) use of insulin; I69.922 Dysarthria following unspecified cerebrovascular disease
CPT/HCPCS: 36415; 36416; 36600; 70450; 71045; 71275; 74177; 80048; 80053; 80076; 80202; 81001; 82550; 82565; 82728; 82805; 83605; 83615; 83690; 83735; 83880; 84145; 84443; 84484; 85025; 85610; 85730; 86141; 87040; 87077; 87086; 87149; 87186; 87428; 93005; 95813; 96374; 96375; J0248; J0692; J0696; J1650; J1815; J1885; J1953; J3373; J3475; J7030; J7050; J8540; Q9967